=== PATIENT | male | born 1965 | race Caucasian/White ===

== ENCOUNTER 2018-07-26 16:08 | Emergency (ER) | payer MEDICAID ==
[2018-07-26] MEDS ORDERED: TDAP ADULT 0.5 ML INJ (BOOSTRIX) IM ONE (16:16)
--- NOTE | 2018-07-26 16:16 | EDPHY ---
H & P Smoking Status: Current every day smoker Time Seen by Provider: 07/26/18 16:13 HPI/ROS: CHIEF COMPLAINT: Alcohol intoxication, suicidal ideation HISTORY OF PRESENT ILLNESS: Brought in by EMS, when his landlord called. The patient was punching mirrors with his hand, drinking heavily, saying he does not want to live. Patient denies overdose. Denies weakness or numbness in the fingers of his right hand. Denies any medical complaints. He arrives on a mental health hold. REVIEW OF SYSTEMS: Eye: no change in vision ENT: no sore throat Cardiac: no chest pain or syncope Pulmonary: no cough or SOB Abdomen: no vomiting, diarrhea, abdominal pain Musculoskeletal: no back pain Skin: Superficial abrasions on his right hand. Neuro: no headache Constitutional: no fever : no urinary symptoms A comprehensive 10 point review of systems is otherwise negative aside from elements mentioned in the history of present illness. PAST MEDICAL HISTORY: Diabetes and hypertension Social history: Tobacco and alcohol General Appearance: Alert and conversant, cooperative. Eyes: No scleral icterus. ENT, Mouth: Normal mucous membranes. Respiratory: Normal respiratory effort, breath sounds equal, lungs are clear to auscultation. Cardiovascular: Regular rate and rhythm. Gastrointestinal: Abdomen is soft and non tender. Neurological: Alert, face symmetric, normal motor and sensory in extremities. Specifically normal motor in flexor and extensor tendons and normal sensation and capillary refill in the right hand. Skin: Abrasions on the right hand on the dorsum of the right wrist in greatest on dorsum of the middle finger. Nonsuturable. Musculoskeletal: No peripheral edema. Psychiatric: Suicidal ideation, depressed affect. Emergency Department course/MDM: Alcohol level and labs, wound care, mental health evaluation when not intoxicated. Differential diagnosis considered for depression including functional and major depression, situational depression, medication side effect, drugs and alcohol abuse. 1800: Ethanol 359, serial exams until no longer intoxicated. Signed out to Dr. Purdy with plan for psychiatric evaluation when no longer intoxicated. (Edu Jason) Constitutional: Initial Vital Signs Temperature (C) 36.7 C 07/26/18 16:16 Heart Rate 85 07/26/18 16:16 Respiratory Rate 18 07/26/18 16:16 Blood Pressure 145/93 H 07/26/18 16:16 O2 Sat (%) 93 07/26/18 16:16 O2 Delivery Mode Room Air Allergies/Adverse Reactions: No Known Allergies Allergy (Verified 01/26/16 15:10) Home Medications: Medication Instructions Recorded metFORMIN HCL [Glucophage 500 mg 1,000 mg PO BIDMEAL 07/04/14 (*)] Hydrocodone/APAP 5/325 [[place] 1 tab PO Q4 PRN 01/26/16 5/325 (*)] Lisinopril [Zestril 20 mg (*)] 20 mg PO DAILY #60 tab 01/27/16 Medical Decision Making ED Course/Re-evaluation: 2236: Patient has been seen and evaluated by mental health. He is now sober and denies being suicidal. Contracts for safety. He has a good support plan in place. Will lift M1 hold. He can be safely discharged from the emergency room. I did go and see and talk to him. He contracts for safety. Okay for d/c. Return precautions discussed. Admits to being intoxicated. (Jay Jay Purdy) - Data Points Laboratory Results: Laboratory Results 07/26/18 16:15 07/26/18 16:15 07/26/18 07/26/18 07/26/18 16:49 16:15 16:15 WBC 8.66 10^3/uL 10^3/uL (3.80-9.50) RBC 4.77 10^6/uL 10^6/uL (4.40-6.38) Hgb 15.5 g/dL g/dL (13.7-17.5) Hct 43.8 % % (40.0-51.0) MCV 91.8 fL fL (81.5-99.8) MCH 32.5 pg pg (27.9-34.1) MCHC 35.4 g/dL g/dL (32.4-36.7) RDW 13.5 % % (11.5-15.2) Plt Count 267 10^3/uL 10^3/uL (150-400) MPV 9.0 fL fL (8.7-11.7) Neut % (Auto) 50.3 % % (39.3-74.2) Lymph % (Auto) 39.1 % % (15.0-45.0) Mcminn % (Auto) 7.4 % % (4.5-13.0) Eos % (Auto) 1.8 % % (0.6-7.6) Baso % (Auto) 0.8 % % (0.3-1.7) Nucleat RBC Rel Count 0.0 % % (0.0-0.2) Absolute Neuts (auto) 4.35 10^3/uL 10^3/uL (1.70-6.50) Absolute Lymphs (auto) 3.39 10^3/uL H 10^3/uL (1.00-3.00) Absolute Monos (auto) 0.64 10^3/uL 10^3/uL (0.30-0.80) Absolute Eos (auto) 0.16 10^3/uL 10^3/uL (0.03-0.40) Absolute Basos (auto) 0.07 10^3/uL 10^3/uL (0.02-0.10) Absolute Nucleated RBC 0.00 10^3/uL 10^3/uL (0-0.01) Immature Gran % 0.6 % % (0.0-1.1) Immature Gran # 0.05 10^3/uL 10^3/uL (0.00-0.10) Sodium 141 mEq/L mEq/L (135-145) Potassium 4.5 mEq/L mEq/L (3.5-5.2) Chloride 107 mEq/L mEq/L (97-110) Carbon Dioxide 22 mEq/l mEq/l (22-31) Anion Gap 12 mEq/L mEq/L (6-14) BUN 27 mg/dL H mg/dL (7-23) Creatinine 1.0 mg/dL mg/dL (0.7-1.3) Estimated GFR > 60 Glucose 166 mg/dL H mg/dL (70-100) Calcium 9.2 mg/dL mg/dL (8.5-10.4) Salicylates < 1.0 mg/dL L mg/dL (2.0-20.0) Urine Opiates Screen NEGATIVE (NEGATIVE) Acetaminophen < 10 mcg/mL L mcg/mL (10-30) Urine Barbiturates NEGATIVE (NEGATIVE) Ur Phencyclidine Scrn NEGATIVE (NEGATIVE) Ur Amphetamine Screen NEGATIVE (NEGATIVE) U Benzodiazepines Scrn NEGATIVE (NEGATIVE) Urine Cocaine Screen NEGATIVE (NEGATIVE) U Marijuana (THC) Screen NEGATIVE (NEGATIVE) Ethyl Alcohol 359 mg/dL H mg/dL (0-10) Medications Given: Discontinued Medications Diphtheria/Tetanus/Acell Pertussis (Boostrix) 0.5 ml IM .ONCE ONE Stop: 07/26/18 16:17 Last Admin: 07/26/18 22:24 Dose: Not Given Departure - Departure Disposition: Home, Routine, Self-Care Clinical Impression: Alcohol intoxication Qualifiers: Complication of substance-induced condition: uncomplicated Qualified Code(s): F10.920 - Alcohol use, unspecified with intoxication, uncomplicated Depression Qualifiers: Depression Type: unspecified Qualified Code(s): F32.9 - Major depressive disorder, single episode, unspecified Abrasion of hand Qualifiers: Encounter type: initial encounter Laterality: right Qualified Code(s): S60.511A - Abrasion of right hand, initial encounter Instructions: Alcohol Intoxication (ED), Abrasion (ED), Suicide Prevention (ED) Additional Instructions: 1. Follow up with resources you were given today. 2. Return to the emergency room if worsening symptoms. Referrals: Adan Foley MD [Medical Doctor] - As per Instructions
[2018-07-26 16:27] LABS: PLATELET COUNT 267 10^3/uL (150-400)
[2018-07-26 22:48] VITALS: BP 164/88
--- NOTE | 2018-07-26 22:54 | ASMTLCPROG ---
Notes Note: Notes: Pt was seen by a [facility] clinician once his BAL had decreased and he was medically cleared. Pt did recall feeling suicidal while intoxicated earlier today, but has denied any present SI. He denied any past SI and any psychiatric diagnosis. His son and friend, present in the room with him both confirm that they have seen him sad in the past and recgnize that he drinks excessively, but agree that he has not voiced SI in the past. He spoke of having a "very rough" last few days with several stressors including believing his dog was missing and "freaking out", having an argument with his son over this situation (his son had taken the dog out of the house) and having an argument with his employer. He reports drinking for the last 3 days "straight", due to these stressors.. These three situations have been resolved; his son was present in the room and confirmed that he and his father are "okay", the dog is back at the house and his father will have a job to return to tomorrow. Pt declined resources for alcoholism and/or mental health and was told to recontact us if he would like those resources. the ED physician was informed and lifted pt's M1 hold. He was discharged home. Date Signed: 07/26/2018 10:54 PM Electronically Signed By:Arminda Varma
== END 2018-07-26 22:47 | disposition home or self-care (01) ==
LOC: EDUNIT#
DX: F10.920 Alcohol use, unspecified with intoxication, uncomplicated (principal); F32.9 Major depressive disorder, single episode, unspecified; S60.511A Abrasion of right hand, initial encounter; W22.09XA Striking against other stationary object, initial encounter; Y90.8 Blood alcohol level of 240 mg/100 ml or more
CPT/HCPCS: 80305; G0480